=== PATIENT | male | born 1975 | race Hispanic/Latino ===

== ENCOUNTER 2022-06-14 05:52 | Inpatient (IN) | payer BC, OTHER ==
[2022-06-14] MEDS ORDERED: CEFAZOLIN 2 GM VIAL ONE (06:02)
[2022-06-14] MEDS ORDERED: Boostrix 0.5 ML (Tdap) VIAL (>/=7 yrs of age) ONE (06:05)
[2022-06-14] MEDS ORDERED: Ondansetron PF 4 MG/2 ML Vial ONE ×2 (06:14→11:00)
[2022-06-14] MEDS ORDERED: Morphine 4 MG/ML VIAL ONE ×2 (06:14→07:02)
[2022-06-14 06:15] LABS: #Basophils 0.1 thou/uL (0.0-0.2); #Eosinphils 0.2 thou/uL (0.0-0.7); #Lymphocytes 4.8 thou/uL (1.20-3.40); #Monocytes 0.9 thou/uL (0.11-0.59); #Neutrophils 4.7 thou/uL (1.40-6.50); %Basophils 0.8 % (0.0-1.0); %Eosinophils 2.2 % (0.0-10.0); Mean Corpuscular HGB CONC 34.3 g/dL (32.0-36.0); Mean Corpuscular Hemoglobin 30.5 pg (27.0-31.0); Mean Corpuscular Volume 88.8 fL (78.0-98.0); Mean Platelet Volume 9.9 fL (7.4-10.4); Platelet Count 209 thou/uL (130-400); Red Blood Cell (RBC) Count 5.59 mill/uL (4.70-6.10); White Blood Cell (WBC) Count 10.6 thou/uL (4.8-10.8)
[2022-06-14 06:34] LABS: ALT (SGPT) 38 U/L (8-55); AST (SGOT) 20 U/L (5-34); Albumin 4.6 g/dL (3.5-5.0); Alkaline Phosphatase 101 U/L (40-110); Anion Gap 15 mmol/L (10-20); BUN (Urea Nitrogen) 12 mg/dL (8.9-20.6); Bilirubin, Total 0.6 mg/dL (0.2-1.2); Calc. Creatinine Clearance 0 mL/min (70-130); Calcium 10.3 mg/dL (7.8-10.44); Carbon Dioxide 25 mmol/L (22-29); Chloride 102 mmol/L (98-107); Estimated GFR 100; Globulin 3.4 g/dL (2.4-3.5); Glucose 138 mg/dL (70-105); Potassium 3.6 mmol/L (3.5-5.1); Sodium 138 mmol/L (136-145)
[2022-06-14 07:54] LABS: SARS-CoV-2 NAA Rapid Test Not Detected (NotDetected)
[2022-06-14] MEDS ORDERED: Gentamicin 80 MG/2 ML VIAL ONE (07:56)
[2022-06-14] MEDS ORDERED: Bacitracin Zinc Ointment 30 gm TUBE ONE (09:19)
[2022-06-14] MEDS ORDERED: Neomycin-Polymyxin 1 ML AMP ONE ×2 (09:19→11:30)
[2022-06-14] MEDS ORDERED: Bupivacaine PF 0.5% 30 ML VIAL ONE (09:19)
[2022-06-14] MEDS ORDERED: Thrombin 5000 UNITS/5 ML VIAL ONE (09:19)
[2022-06-14] MEDS ORDERED: Fentanyl 100 MCG/2 ML VIAL ONE (10:04)
[2022-06-14] MEDS ORDERED: Ketorolac Tromethamine 30 MG/ML VIAL ONE (10:27)
[2022-06-14] MEDS ORDERED: Midazolam HCl 2 mg/2 ml Vial ONE (10:32)
[2022-06-14] MEDS ORDERED: fentaNYL Citrate/PF 100 MCG/2 ML SYRINGE ONE (10:32)
[2022-06-14] MEDS ORDERED: Hetastarch 6% 500 ML 500 ML ONE (10:44)
[2022-06-14] MEDS ORDERED: Heparin 10,000 UNITS/ 10 ML VIAL ONE (10:44)
[2022-06-14] MEDS ORDERED: Lidocaine 2% PF 5 ML VIAL ONE (10:44)
[2022-06-14] MEDS ORDERED: Betamet Acet/Betamet Na Ph 30 MG/5 ML VIAL ONE (10:45)
[2022-06-14] MEDS ORDERED: NEOSTIGMINE 3 MG/3 ML SYR 3 MG/3 ML SYRINGE ONE (11:00)
[2022-06-14] MEDS ORDERED: Dexamethasone 20 MG/5 ML VIAL ONE (11:00)
[2022-06-14] MEDS ORDERED: Phenylephrine 10 MG/ML VIAL ONE (11:00)
[2022-06-14] MEDS ORDERED: Glycopyrrolate 0.2 MG/ML 5 ML SYRINGE ONE (11:00)
[2022-06-14] MEDS ORDERED: Lidocaine 1% MPF 2 ML VIAL ONE (11:00)
[2022-06-14] MEDS ORDERED: PROPOFOL 200 MG/20 ML VIAL ONE (11:00)
[2022-06-14] MEDS ORDERED: Rocuronium Bromide 10 MG/ML (10ML VIAL) ONE (11:00)
[2022-06-14] MEDS ORDERED: Heparin 25,000 units/D5W 500 ML ONE (11:26)
[2022-06-14] MEDS ORDERED: Papaverine 60 MG/2 ML VIAL ONE (13:18)
[2022-06-14] MEDS ORDERED: Ondansetron PF 4 MG/2 ML Vial IVP PRN (16:05)
[2022-06-14] MEDS ORDERED: Bisacodyl 10 MG SUPP PR PRN (16:05)
[2022-06-14] MEDS ORDERED: traMADol HCl 50 MG TAB PO PRN (16:05)
[2022-06-14] MEDS ORDERED: TETANUS, DIPHTHERIA TOX,ADULT (TDVAX) 0.5 ML VIAL IM ONE (16:05)
[2022-06-14] MEDS ORDERED: Milk Of Magnesia 30 ML UDCUP PO PRN (16:05)
[2022-06-14] MEDS ORDERED: Fentanyl 100 MCG/2 ML VIAL SLOW IVP PRN (16:05)
[2022-06-14] MEDS ORDERED: Promethazine HCl 25 MG/ML VIAL IM PRN (16:05)
[2022-06-14] MEDS ORDERED: Morphine 4 MG/ML VIAL SLOW IVP PRN (16:05)
[2022-06-14] MEDS ORDERED: Meperidine HCl/PF 25 MG/ML VIAL IM PRN (16:11)
[2022-06-14 19:58] VITALS: BMI 35.4
[2022-06-14] MEDS ORDERED: Vancomycin 1 GM in Premix Bag 1 BAG IVPB SCH (21:00)
[2022-06-14] MEDS: Aspirin 81 mg Enteric Coated Tablet PO SCH (21:15)
[2022-06-14] MEDS: Vancomycin 1.5 GRAM/300 ML BAG 1.5 GM in Premix Bag 1 BAG IVPB SCH (23:05)
[2022-06-14] MEDS: HYDROcodone/Acetaminophen 5/325 mg Tablet PO PRN (23:54)
[2022-06-15] MEDS: HYDROcodone/Acetaminophen 5/325 mg Tablet PO PRN ×4 (06:19→20:33)
[2022-06-15] MEDS: Vancomycin 1.5 GRAM/300 ML BAG 1.5 GM in Premix Bag 1 BAG IVPB SCH ×3 (06:19→23:25)
[2022-06-15] MEDS: Aspirin 81 mg Enteric Coated Tablet PO SCH ×2 (08:27→20:33)
[2022-06-15 21:18] LABS: Vancomycin, Trough 16.4 ug/mL
[2022-06-16] MEDS: HYDROcodone/Acetaminophen 5/325 mg Tablet PO PRN ×2 (01:45→13:32)
[2022-06-16] MEDS: Vancomycin 1.5 GRAM/300 ML BAG 1.5 GM in Premix Bag 1 BAG IVPB SCH ×2 (05:47→14:36)
[2022-06-16] MEDS ORDERED: Aspirin 325 mg Enteric Coated Tablet PO SCH (06:00)
[2022-06-16 13:10] VITALS: BP 132/83; TEMP 97.5
[2022-06-16] MEDS ORDERED: Aspirin 81 mg Enteric Coated Tablet PO SCH (21:00)
== END 2022-06-16 19:56 | disposition home or self-care (01) | DRG 906 ==
LOC: ERS 05:52 → SDC 08:14 → MSONC 16:05
PROVIDERS: ADMIT Orthopaedic Surgery Hand Surgery; ATTEND Orthopaedic Surgery Hand Surgery
PROC: 01Q60ZZ Repair Radial Nerve, Open Approach (ICD-10-PCS; principal; 2022-06-14)
PROC: 0JBK0ZZ Excision of Left Hand Subcutaneous Tissue and Fascia, Open Approach (ICD-10-PCS; 2022-06-14)
PROC: 01Q40ZZ Repair Ulnar Nerve, Open Approach (ICD-10-PCS; 2022-06-14)
PROC: 03QC0ZZ Repair Left Radial Artery, Open Approach (ICD-10-PCS; 2022-06-14)
DX: S67.22XA Crushing injury of left hand, initial encounter (principal); S65.511A Laceration of blood vessel of left index finger, initial encounter; S64.491A Injury of digital nerve of left index finger, initial encounter; S64.493A Injury of digital nerve of left middle finger, initial encounter; Z20.822 Contact with and (suspected) exposure to COVID-19
CPT/HCPCS: 36415; 80053; 80202; 85025; 86850; 86900; 86901; 90715; G0390; J0690; J0702; J1100; J1580; J1644; J1885; J2001; J2250; J2270; J2370; J2405; J2440; J2704; J3010; J3370; S0020; U0002

== ENCOUNTER 2024-02-16 13:47 | Outpatient (CLI) | payer BC ==
[2024-02-16 15:37] LABS: #Basophils 0.05 10x3/uL (0.0-0.2); #Eosinphils 0.12 10x3/uL (0.0-0.5); #Monocytes 0.71 10x3/uL (0.0-1.1); #Neutrophils 3.25 10x3/uL (1.5-8.4); %Basophils 0.8 % (0.0-2.0); %Eosinophils 1.9 % (0.0-6.0); %Lymphocytes 34.6 % (18.0-47.0); %Monocytes 11.2 % (0.0-10.0); %Neutrophils 51.2 % (40.0-75.0); Hemoglobin 16.5 g/dL (13.5-17.5); Mean Corpuscular HGB CONC 36.7 g/dL (32.0-36.0); Mean Corpuscular Hemoglobin 30.5 pg (27.0-33.0); Mean Corpuscular Volume 83.2 fL (81.2-95.1); Mean Platelet Volume 12.4 fL (7.4-10.4); Platelet Count 220 10x3/uL (150-450); RBC Distribution Width 12.9 % (11.5-14.5); Red Blood Cell (RBC) Count 5.41 10x6/uL (4.32-5.72); White Blood Cell (WBC) Count 6.4 10x3/uL (3.5-10.5)
[2024-02-16 16:18] LABS: ALT (SGPT) 34 U/L (8-55); AST (SGOT) 21 U/L (5-34); Albumin 4.2 g/dL (3.5-5.0); Alkaline Phosphatase 97 U/L (40-110); Anion Gap 15 mmol/L (10-20); BUN (Urea Nitrogen) 10 mg/dL (8.9-20.6); Bilirubin, Total 0.5 mg/dL (0.2-1.2); Calc. Creatinine Clearance 0 mL/min (70-130); Calcium 9.5 mg/dL (7.8-10.44); Carbon Dioxide 20 mmol/L (22-29); Chloride 108 mmol/L (98-107); Estimated GFR 108; Globulin 3.3 g/dL (2.4-3.5); Glucose 107 mg/dL (70-105); Potassium 4.3 mmol/L (3.5-5.1); Protein, Total 7.5 g/dL (6.0-8.3); Sodium 139 mmol/L (136-145)
== END 2024-02-16 13:48 | disposition home or self-care (01) ==
LOC: LABBT 13:47
PROVIDERS: ATTEND Surgery
DX: Z01.818 Encounter for other preprocedural examination (principal); D17.5 Benign lipomatous neoplasm of intra-abdominal organs
CPT/HCPCS: 80053; 85025; 93005; 93010